=== PATIENT | male | born 1960 | race Caucasian/White ===

== ENCOUNTER 2020-06-05 14:58 | Emergency (ER) | payer OTHER ==
--- NOTE | 2020-06-05 15:15 | EDM.PDOC ---
ED HPI GENERAL MEDICAL PROBLEM - General Chief Complaint: Fever Stated Complaint: FEVER Time Seen by Provider: 06/05/20 15:12 Source of Information: Reports: Patient History Limitations: Reports: No Limitations - History of Present Illness INITIAL COMMENTS - FREE TEXT/NARRATIVE: Jarad, 59-year-old male, presented today for his previously scheduled chemotherapy. His port was accessed and flushed, giving his IV steroid prechemotherapy regimen. At that time he stated he felt chilled and his temperature was rechecked and found to be febrile greater than 101. Dr. Toscano at [facility] was contacted and advised to have laboratory analysis including cultures blood cultures and culture of his port delaying his chemotherapy for the day. He denies any exposures or risks states that he has had some difficulty "getting warm", ever since chemotherapy started. This is known side effect of the treatment process. Denies any risks or exposures to COVID-19 or other factors. Onset: Today - Related Data Allergies Allergy/AdvReac Type Severity Reaction Status Date / Time No Known Allergies Allergy Verified 06/05/20 15:15 Home Meds: Home Meds Metoprolol Tartrate [Lopressor] 100 mg PO Q12HR 11/22/13 [History] Capecitabine [Xeloda] 2,000 mg PO ASDIRECTED 04/21/20 [History] Mirtazapine [Remeron] 7.5 mg PO BEDTIME PRN 04/21/20 [History] Ondansetron [Zofran Odt] 8 mg PO Q8H PRN 04/21/20 [History] Prochlorperazine Maleate [Compazine] 10 mg PO Q6H PRN 04/21/20 [History] atorvaSTATin [Lipitor] 20 mg PO BEDTIME 04/21/20 [History] dexAMETHasone [Dexamethasone] 8 mg PO ASDIRECTED 04/21/20 [History] metFORMIN HCl [Metformin HCl ER] 500 mg PO DAILY 04/21/20 [History] Docusate Sodium [Colace] 100 mg PO BID PRN 05/15/20 [History] Oxaliplatin 275.6 mg IV ASDIRECTED 06/05/20 [History] Palonosetron [Aloxi] 0.25 mg IV ASDIRECTED 06/05/20 [History] dexAMETHasone in 0.9 % sod chl [Dexamethasone 20 mg/50 ml-Ns] 12 mg IV ASDIRECTED 06/05/20 [History] diphenhydrAMINE [Benadryl] 50 mg IV ASDIRECTED 06/05/20 [History] Past Medical History HEENT History: Reports: Impaired Vision Cardiovascular History: Reports: High Cholesterol, Hypertension Other Cardiovascular History: sinus tachycardia. 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 ED EXAM, GENERAL - Physical Exam Exam: See Below Free Text/Narrative:: Alert, oriented with no evidence of cyanosis nor pallor. HEENT is negative discharge deformity with mild tacky appearing oral membranes. Neck is soft supple with no lymphadenopathy. Thorax is clear throughout with no wheezes nor crackles. Cardiac is regular I do not appreciate any murmur. No flank pain no abdominal pain no chest wall discomfort is noted. There is no edema to the lower extremities. Course - Vital Signs Last Recorded V/S: Last Vital Signs Temp 100.4 F 06/05/20 15:12 Pulse 101 H 06/05/20 15:12 Resp 18 06/05/20 15:12 BP 144/83 H 06/05/20 15:12 Pulse Ox 98 06/05/20 15:12 - Orders/Labs/Meds Orders: Active Orders 24 hr Category Date Time Status CULTURE BLOOD [BC] Stat Lab 06/05/20 15:35 Received CULTURE BLOOD [BC] Stat Lab 06/05/20 15:40 Received CULTURE CATHETER TIP [RM] Stat Lab 06/05/20 15:13 Ordered Heparin Sodium [Heparin Lock Flush 100 Units/ML] Med 06/05/20 17:24 Active 500 units FLUSH ASDIRECTED PRN Blood Culture x2 Reflex Set [OM.PC] Stat Oth 06/05/20 15:12 Ordered Medication Orders Heparin Sodium (Porcine) (Heparin Lock Flush 100 Units/Ml) 500 units FLUSH ASDIRECTED PRN PRN Reason: Heparin lock Last Admin: 06/05/20 17:26 Dose: 500 units Documented by: MIKE Labs: Laboratory Tests 06/05/20 06/05/20 06/05/20 Range/Units 03:00 15:35 15:35 WBC 12.20 H (5.00-10.00) 10^3/uL RBC 4.26 L (4.50-6.00) 10^6/uL Hgb 11.6 L (13.0-17.0) g/dL Hct 36.2 L (40.0-52.0) % MCV 85.0 (82.0-92.0) fL MCH 27.2 (27.0-31.0) pg MCHC 32.0 (32.0-36.0) g/dL RDW 24.8 H (11.5-14.5) % Plt Count 308 (150-400) 10^3/uL MPV 9.5 (7.4-10.4) fL Immature Gran % (Auto) 0.2 (0.0-5.0) % Neut % (Auto) 84.3 H (50.0-70.0) % Lymph % (Auto) 5.2 L (20.0-40.0) % [place] % (Auto) 9.3 H (2.0-8.0) % Eos % (Auto) 0.6 L (1.0-3.0) % Baso % (Auto) 0.4 (0.0-1.0) % Neut # (Auto) 10.30 H (2.50-7.00) 10^3/uL Lymph # (Auto) 0.63 L (1.00-4.00) 10^3/uL [place] # (Auto) 1.13 H (0.10-0.80) 10^3/uL Eos # (Auto) 0.07 L (0.10-0.30) 10^3/uL Baso # (Auto) 0.05 (0.00-0.10) 10^3/uL Immature Gran # (Auto) 0.02 (0.00-0.50) 10^3/uL Sodium 136 (136-145) mmol/L Potassium 4.0 (3.5-5.1) mmol/L Chloride 100 (98-107) mmol/L Carbon Dioxide 27.3 (21.0-32.0) mmol/L Anion Gap 12.7 (5-15) mmol/L BUN 9 (7-18) mg/dL Creatinine 0.67 (0.51-1.17) mg/dL Est Cr Clr Drug Dosing 123.31 mL/min Estimated GFR (MDRD) > 60 mL/min Glucose 101 (70-140) mg/dL Calcium 9.0 (8.7-10.3) mg/dL Total Bilirubin 0.6 (0.2-1.0) mg/dL AST 30 (15-37) U/L ALT 31 (14-63) U/L Alkaline Phosphatase 98 (46-116) U/L Total Protein 7.2 (6.4-8.2) g/dL Albumin 3.09 L (3.40-5.00) g/dL Specimen Type Urincc Urine Color Yellow (YELLOW) Urine Appearance Clear (CLEAR) Urine pH 6.5 (5.0-9.0) Ur Specific [place] 1.020 (1.005-1.030) Urine Protein Negative (NEGATIVE) mg/dL Urine Glucose (UA) Negative (NEGATIVE) mg/dL Urine Ketones Negative (NEGATIVE) mg/dL Urine Occult Blood Negative (NEGATIVE) Urine Nitrite Negative (NEGATIVE) Urine Bilirubin Negative (NEGATIVE) Urine Urobilinogen 0.2 (0.2-1.0) E.U./dL Ur Leukocyte Esterase Negative (NEGATIVE) Meds: Medications Generic Name Dose Route Start Last Admin Trade Name Freq PRN Reason Stop Dose Admin Heparin Sodium (Porcine) 500 units 06/05/20 17:24 06/05/20 17:26 Heparin Lock Flush 100 Units/Ml FLUSH 500 units ASDIRECTED PRN Administration Heparin lock Discontinued Medications Generic Name Dose Route Start Last Admin Trade Name Freq PRN Reason Stop Dose Admin Heparin Sodium (Porcine) Confirm 06/05/20 17:15 Heparin Lock Flush 100 Units/Ml Administered 06/05/20 17:16 Dose 500 units .ROUTE .STK-MED ONE - Re-Assessments/Exams Free Text/Narrative Re-Assessment/Exam: 06/05/20 17:42 Copies of all laboratory analysis obtained today are faxed to the [facility] for review by Dr. Pierre Departure - Departure Time of Disposition: 17:32 Disposition: Home, Self-Care 01 Condition: Good Clinical Impression: Fever and chills - Discharge Information *PRESCRIPTION DRUG MONITORING PROGRAM REVIEWED*: Not Applicable *COPY OF PRESCRIPTION DRUG MONITORING REPORT IN PATIENT EMILY: Not Applicable Instructions: Fever, Adult, [id number] Referrals: Marina Baldwin, [employer] REPRESENTATIVE [Primary Care Provider] - Forms: ED Department Discharge Additional Instructions: Laboratory analysis shows a slight elevation in your white count, which may be related to your treatment/steroid use. There is no major shift in your electrolytes. There is no evidence of urine infection. Cultures have been obtained of your blood as well as the port access which are pending at this time. Copies of all results have been sent to Dr. Rodriguez for his review. Contact your clinic or return to the emergency department if concerns develop, otherwise continue your medications as previously directed and follow-up as scheduled. Sepsis Event Note (ED) - Focused Exam Vital Signs: Vital Signs Temp Pulse Resp BP Pulse Ox 06/05/20 15:12 100.4 F 101 H 18 144/83 H 98 - Problem List & Annotations (1) Fever and chills SNOMED Code(s): 492885123 Code(s): R50.9 - FEVER, UNSPECIFIED Status: Acute Priority: High Current Visit: Yes - Problem List Review Problem List Initiated/Reviewed/Updated: Yes - My Orders Last 24 Hours: My Active Orders 06/05/20 15:12 Blood Culture x2 Reflex Set [OM.PC] Stat 06/05/20 15:13 CULTURE CATHETER TIP [RM] Stat 06/05/20 15:35 CULTURE BLOOD [BC] Stat 06/05/20 15:40 CULTURE BLOOD [BC] Stat 06/05/20 17:24 Heparin Sodium [Heparin Lock Flush 100 Units/ML] 500 units FLUSH ASDIRECTED PRN - Assessment/Plan Last 24 Hours: My Active Orders 06/05/20 15:12 Blood Culture x2 Reflex Set [OM.PC] Stat 06/05/20 15:13 CULTURE CATHETER TIP [RM] Stat 06/05/20 15:35 CULTURE BLOOD [BC] Stat 06/05/20 15:40 CULTURE BLOOD [BC] Stat 06/05/20 17:24 Heparin Sodium [Heparin Lock Flush 100 Units/ML] 500 units FLUSH ASDIRECTED PRN Plan: Laboratory analysis shows a slight elevation in your white count, which may be related to your treatment/steroid use. There is no major shift in your electrolytes. There is no evidence of urine infection. Cultures have been obtained of your blood as well as the port access which are pending at this time. Copies of all results have been sent to Dr. Rodriguez for his review. Contact your clinic or return to the emergency department if concerns develop, otherwise continue your medications as previously directed and follow-up as scheduled.
--- NOTE | 2020-06-05 15:36 | CR ---
[id number] RAD/RAD Chest PA And Lateral EXAM: RAD Chest PA And Lateral CLINICAL DATA: FEVER COMPARISON: NO PREVIOUS SIMILAR EXAM IS AVAILABLE. FINDINGS: The lungs are clear A chest port is seen The cardiomediastinal contour is upper normal IMPRESSION: NO PNEUMONIA Noah Clement MD 06/05/20 [id number] Thank you for allowing us to participate in the care of your patient.
[2020-06-05 16:20] LABS: ANION GAP 12.7 mmol/L (5-15); CHLORIDE,CL 100 mmol/L (98-107); SODIUM,NA 136 mmol/L (136-145)
== END 2020-06-05 17:50 | disposition home or self-care (01) ==
LOC: KA.ED 14:58
DX: R50.9 Fever, unspecified (principal); E78.00 Pure hypercholesterolemia, unspecified; I10 Essential (primary) hypertension
CPT/HCPCS: 36415; 71046; 80053; 81003; 85025; 87040; 87070; 87205; 99283; J1642; 99284

== ENCOUNTER 2020-06-08 10:11 | Emergency (ER) | payer OTHER ==
--- NOTE | 2020-06-08 10:20 | EDM.PDOC ---
ED HPI GENERAL MEDICAL PROBLEM - General Chief Complaint: General Stated Complaint: CHILLS...NOT FEELING WELL Time Seen by Provider: 06/08/20 10:15 Source of Information: Reports: Patient History Limitations: Reports: No Limitations - History of Present Illness INITIAL COMMENTS - FREE TEXT/NARRATIVE: Jarad, 59-year-old male, presents today for reevaluation of his ongoing rigors and low-grade temp. He was seen last for his scheduled chemotherapy which was aborted that day due to him spiking a fever after his arrival. [facility] was consulted and laboratory analysis obtained and forwarded to them with discharge home for follow-up as directed. He was cleared for chemotherapy for the next day but unfortunately not available Due to staffing reasons. He stated he stepped outside on Tuesday and is the cold air struck his body he almost immediately developed chills again. He states this is a side effect of his chemo that he is well aware of but has become more severe on this event. Routine exposures, with no known Covid 19, but is frequent to medical facilities secondary of the treatment process. Onset: Gradual Duration: Day(s): Location: Reports: Generalized Quality: Reports: Other (chills) Severity: Moderate - Related Data Allergies Allergy/AdvReac Type Severity Reaction Status Date / Time No Known Allergies Allergy Verified 06/08/20 10:24 Home Meds: Home Meds Metoprolol Tartrate [Lopressor] 100 mg PO Q12HR 11/22/13 [History] Capecitabine [Xeloda] 2,000 mg PO ASDIRECTED 04/21/20 [History] Mirtazapine [Remeron] 7.5 mg PO BEDTIME PRN 04/21/20 [History] Ondansetron [Zofran Odt] 8 mg PO Q8H PRN 04/21/20 [History] Prochlorperazine Maleate [Compazine] 10 mg PO Q6H PRN 04/21/20 [History] atorvaSTATin [Lipitor] 20 mg PO BEDTIME 04/21/20 [History] dexAMETHasone [Dexamethasone] 8 mg PO ASDIRECTED 04/21/20 [History] metFORMIN HCl [Metformin HCl ER] 500 mg PO DAILY 04/21/20 [History] Docusate Sodium [Colace] 100 mg PO BID PRN 05/15/20 [History] Oxaliplatin 275.6 mg IV ASDIRECTED 06/05/20 [History] Palonosetron [Aloxi] 0.25 mg IV ASDIRECTED 06/05/20 [History] dexAMETHasone in 0.9 % sod chl [Dexamethasone 20 mg/50 ml-Ns] 12 mg IV ASDIRECTED 06/05/20 [History] diphenhydrAMINE [Benadryl] 50 mg IV ASDIRECTED 06/05/20 [History] Amoxicillin/Potassium Clav [Amox Tr-K Clv 875-125 mg Tab] 1 each PO BID 7 Days #14 tablet 06/08/20 [Rx] Past Medical History HEENT History: Reports: Impaired Vision Cardiovascular History: Reports: High Cholesterol, Hypertension Other Cardiovascular History: sinus tachycardia. PVC'S Respiratory History: Reports: Sleep Apnea Other Respiratory History: OBSTRUCTIVE SLEEP APNEA. 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 - Infectious Disease History Infectious Disease History: Reports: Chicken Pox, Mononucleosis, Mumps - Past Surgical History HEENT Surgical History: Reports: Tonsillectomy Cardiovascular Surgical History: Reports: None Respiratory Surgical History: Reports: None GI Surgical History: Reports: Colonoscopy Neurological Surgical History: Reports: Other (See Below) Other Neurological Surgeries/Procedures: RUPTURED DISC SURGERY Social & Family History - Family History Family Medical History: No Pertinent Family History - Caffeine Use Caffeine Use: Reports: Coffee, Soda ED ROS GENERAL - Review of Systems Review Of Systems: Comprehensive ROS is negative, except as noted in HPI. ED EXAM, GENERAL - Physical Exam Exam: See Below Free Text/Narrative:: Alert, oriented, with occasional chills. HEENT is negative discharge or deformity. Neck soft supple no rigidity. Thorax is clear with no wheezes or crackles. Cardiac S1-S2 I do not appreciate murmur. No flank pain no abdominal tenderness. There is no edema to the extremities. Occasional rigors occur but are much more minimal now than what he was experiencing this morning and prior to the arrival. We discussed with her do comparison studies on his electrolytes and reinstitute culture draws today and include a COVID-19 swab. Course - Vital Signs Last Recorded V/S: Last Vital Signs Temp 100.5 F 06/08/20 10:18 Pulse 108 H 06/08/20 10:18 Resp 16 06/08/20 10:18 BP 109/70 06/08/20 10:18 Pulse Ox 96 06/08/20 10:18 - Orders/Labs/Meds Orders: Active Orders 24 hr Category Date Time Status CULTURE BLOOD [BC] Stat Lab 06/08/20 10:22 Ordered CULTURE BLOOD [BC] Stat Lab 06/08/20 10:30 Received CULTURE BLOOD [BC] Stat Lab 06/08/20 10:30 Received Blood Culture x2 Reflex Set [OM.PC] Stat Oth 06/08/20 10:21 Ordered Labs: Laboratory Tests 06/08/20 06/08/20 06/08/20 Range/Units 10:30 10:30 10:46 WBC 17.33 H (5.00-10.00) 10^3/uL RBC 4.30 L (4.50-6.00) 10^6/uL Hgb 11.8 L (13.0-17.0) g/dL Hct 36.1 L (40.0-52.0) % MCV 84.0 (82.0-92.0) fL MCH 27.4 (27.0-31.0) pg MCHC 32.7 (32.0-36.0) g/dL RDW 25.0 H (11.5-14.5) % Plt Count 279 (150-400) 10^3/uL MPV 9.7 (7.4-10.4) fL Immature Gran % (Auto) 0.3 (0.0-5.0) % Neut % (Auto) 80.4 H (50.0-70.0) % Lymph % (Auto) 4.7 L (20.0-40.0) % [place] % (Auto) 14.3 H (2.0-8.0) % Eos % (Auto) 0.0 L (1.0-3.0) % Baso % (Auto) 0.3 (0.0-1.0) % Neut # (Auto) 13.93 H (2.50-7.00) 10^3/uL Lymph # (Auto) 0.82 L (1.00-4.00) 10^3/uL [place] # (Auto) 2.47 H (0.10-0.80) 10^3/uL Eos # (Auto) 0.00 L (0.10-0.30) 10^3/uL Baso # (Auto) 0.05 (0.00-0.10) 10^3/uL Immature Gran # (Auto) 0.06 (0.00-0.50) 10^3/uL Target Cells Rare Sodium 136 (136-145) mmol/L Potassium 3.2 L (3.5-5.1) mmol/L Chloride 97 L (98-107) mmol/L Carbon Dioxide 25.4 (21.0-32.0) mmol/L Anion Gap 16.8 H (5-15) mmol/L BUN 12 (7-18) mg/dL Creatinine 0.75 (0.51-1.17) mg/dL Est Cr Clr Drug Dosing 110.16 mL/min Estimated GFR (MDRD) > 60 mL/min Glucose 122 (70-140) mg/dL Calcium 8.9 (8.7-10.3) mg/dL Total Bilirubin 0.7 (0.2-1.0) mg/dL AST 26 (15-37) U/L ALT 26 (14-63) U/L Alkaline Phosphatase 93 (46-116) U/L Total Protein 7.0 (6.4-8.2) g/dL Albumin 2.94 L (3.40-5.00) g/dL SARS CoV-2 RNA Rapid TOM Negative (NEGATIVE) Meds: Medications Discontinued Medications Generic Name Dose Route Start Last Admin Trade Name Maikq PRN Reason Stop Dose Admin Amoxicillin/Clavulanate Potassium 2 tab 06/08/20 12:02 Augmentin 875 Mg/125 Mg PO 06/08/20 12:03 ONETIME ONE - Re-Assessments/Exams Free Text/Narrative Re-Assessment/Exam: 06/08/20 12:13 Discussed options for care including antibiotic broad-spectrum, contacting [place], or waiting to see what laboratory analysis return when rechecked on Tuesday. They will agrees antibiotic therapy at this time as you would prefer avoiding hospitalization or travel to [place] until something is proven is the nose cultures will not finalize for the next 24 to 48 hours on cultures drawn and the ones from today would be next Tuesday to in Timespan d epending on response. Departure - Departure Time of Disposition: 12:10 Disposition: Home, Self-Care 01 Condition: Fair Clinical Impression: Immunocompromised state due to drug therapy, Fever and chills, COVID-19 ruled out by laboratory testing, Hypokalemia, Leukocytosis, unspecified - Discharge Information *PRESCRIPTION DRUG MONITORING PROGRAM REVIEWED*: Not Applicable *COPY OF PRESCRIPTION DRUG MONITORING REPORT IN PATIENT EMILY: Not Applicable Prescriptions: Amoxicillin/Potassium Clav [Amox Tr-K Clv 875-125 mg Tab] 1 each PO BID 7 Days #14 tablet Instructions: Hypokalemia, Fever, Adult, [id number] Referrals: Marina Baldwin NP [Primary Care Provider] - Ang Meyer MD [Ordering Only Provider] - Forms: ED Department Discharge Additional Instructions: With comparison of the change in your white count since , we will start you on broad-spectrum antibiotic of Augmentin. You will take 1 twice daily for the next week. You are negative for COVID-19. Your potassium is come down slightly, you may improve that by eating bananas or other high potassium foods potatoes, potato pealings and such. Continue all your other medications as directed. You may consider eating yogurt or take probiotic capsule to reduce the concern of diarrhea from the antibiotic. Follow-up with your clinic as scheduled for laboratory analysis. As a lot of your symptoms are secondary warnings of your chemotherapy, try avoid any irritants or activity that may cause that to flareup. We have provided you copies of the lab and will send copies to the [facility] for them to have available in your chart as well as this record. Please call us or follow-up as needed. Cultures will result some time likely the second or 3 June. Consideration for reevaluation if your chills would be worsening or other issues develop. Sepsis Event Note (ED) - Focused Exam Vital Signs: Vital Signs Temp Pulse Resp BP Pulse Ox 06/08/20 10:18 100.5 F 108 H 16 109/70 96 - Problem List & Annotations (1) Fever and chills SNOMED Code(s): 425434020 Code(s): R50.9 - FEVER, UNSPECIFIED Status: Acute Priority: High Current Visit: No (2) Immunocompromised state due to drug therapy SNOMED Code(s): 776910524 Code(s): D84.821 - IMMUNODEFICIENCY DUE TO DRUGS; Z79.899 - OTHER ULTRASONIC TESTER (CURRENT) DRUG THERAPY Status: Chronic Priority: High Current Visit: Yes (3) COVID-19 ruled out by laboratory testing SNOMED Code(s): 479996018840815465, 664242902439354467 Code(s): Z20.822 - CONTACT WITH AND (SUSPECTED) EXPOSURE TO COVID-19 Status: Acute Priority: High Current Visit: Yes (4) Leukocytosis, unspecified SNOMED Code(s): 158356306, 747085771 Code(s): D72.829 - ELEVATED WHITE BLOOD CELL COUNT, UNSPECIFIED Status: Acute Current Visit: Yes Qualifiers: Leukocytosis type: unspecified Qualified Code(s): D72.829 - Elevated white blood cell count, unspecified (5) Hypokalemia SNOMED Code(s): 48441520 Code(s): E87.6 - HYPOKALEMIA Status: Acute Current Visit: Yes - Problem List Review Problem List Initiated/Reviewed/Updated: Yes - My Orders Last 24 Hours: My Active Orders 06/08/20 10:21 Blood Culture x2 Reflex Set [OM.PC] Stat 06/08/20 10:22 CULTURE BLOOD [BC] Stat 06/08/20 10:30 CULTURE BLOOD [BC] Stat CULTURE BLOOD [BC] Stat - Assessment/Plan Last 24 Hours: My Active Orders 06/08/20 10:21 Blood Culture x2 Reflex Set [OM.PC] Stat 06/08/20 10:22 CULTURE BLOOD [BC] Stat 06/08/20 10:30 CULTURE BLOOD [BC] Stat CULTURE BLOOD [BC] Stat Plan: With comparison of the change in your white count since , we will start you on broad-spectrum antibiotic of Augmentin. You will take 1 twice daily for the next week. You are negative for COVID-19. Your potassium is come down slightly, you may improve that by eating bananas or other high potassium foods potatoes, potato pealings and such. Continue all your other medications as directed. You may consider eating yogurt or take probiotic capsule to reduce the concern of diarrhea from the antibiotic. Follow-up with your clinic as scheduled for laboratory analysis. As a lot of your symptoms are secondary warnings of your chemotherapy, try avoid any irritants or activity that may cause that to flareup. We have provided you copies of the lab and will send copies to the [facility] for them to have available in your chart as well as this record. Please call us or follow-up as needed. Cultures will result some time likely the second or 11 June. Consideration for reevaluation if your chills would be worsening or other issues develop.
[2020-06-08 11:40] LABS: ANION GAP 16.8 mmol/L (5-15); CHLORIDE,CL 97 mmol/L (98-107); SODIUM,NA 136 mmol/L (136-145)
[2020-06-08] MEDS ORDERED: Amoxicillin/Clavulanate K 875-125 MG Tab PO ONE (12:02)
== END 2020-06-08 12:25 | disposition home or self-care (01) ==
LOC: KA.ED 10:11
DX: R50.9 Fever, unspecified (principal); E87.6 Hypokalemia; D72.829 Elevated white blood cell count, unspecified; T45.1X5A Adverse effect of antineoplastic and immunosuppressive drugs, initial encounter; I10 Essential (primary) hypertension; E78.00 Pure hypercholesterolemia, unspecified; Z20.822 Contact with and (suspected) exposure to COVID-19; Z79.899 Other long term (current) drug therapy
CPT/HCPCS: 36415; 80053; 85025; 87040; 99284; A9270-GY; U0002

== ENCOUNTER 2020-06-21 00:48 | Emergency (ER) | payer OTHER ==
[2020-06-21] MEDS ORDERED: Sodium Chloride 0.9% 1,000 ML IV ONE ×3 (01:04→02:37)
--- NOTE | 2020-06-21 01:12 | EDM.PDOC ---
ED HPI GENERAL MEDICAL PROBLEM - General Chief Complaint: General Stated Complaint: fever, weakness, dehydration Time Seen by Provider: 06/21/20 01:03 Source of Information: Reports: Patient History Limitations: Reports: No Limitations - History of Present Illness INITIAL COMMENTS - FREE TEXT/NARRATIVE: Patient presents via ambulance with fever, weakness and tachycardia. He says he thinks he is just really dehydrated. He is getting treatment for colon cancer and has had 3 chemo treatments so far. So far he hasn't had drop in white cell counts that he knows of. He thinks he is dehydrated, mostly due to lack of appetite and thirst. He denies diarrhea or vomiting. He denies any pain or cough. He was here in ER 12 days ago with similar symptoms; had UA and CXR to look for any source of infection and was started on a 7-day course of amoxicillin empirically. 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 He doesn't know if the fever ever completely resolved but he feels worse now. His says he almost fainted twice this evening when walking to the bathroom. Lower Back Pain Score (Numeric/FACES): 4 - Related Data Allergies Allergy/AdvReac Type Severity Reaction Status Date / Time oxaliplatin Allergy Other Verified 06/21/20 01:55 Home Meds: Home Meds Metoprolol Tartrate [Lopressor] 100 mg PO Q12HR 11/22/13 [History] Capecitabine [Xeloda] 2,000 mg PO ASDIRECTED 04/21/20 [History] Mirtazapine [Remeron] 7.5 mg PO BEDTIME PRN 04/21/20 [History] Ondansetron [Zofran Odt] 8 mg PO Q8H PRN 04/21/20 [History] Prochlorperazine Maleate [Compazine] 10 mg PO Q6H PRN 04/21/20 [History] atorvaSTATin [Lipitor] 20 mg PO BEDTIME 04/21/20 [History] dexAMETHasone [Dexamethasone] 8 mg PO ASDIRECTED 04/21/20 [History] metFORMIN HCl [Metformin HCl ER] 500 mg PO DAILY 04/21/20 [History] Docusate Sodium [Colace] 100 mg PO BID PRN 05/15/20 [History] Oxaliplatin 275.6 mg IV ASDIRECTED 06/05/20 [History] Palonosetron [Aloxi] 0.25 mg IV ASDIRECTED 06/05/20 [History] dexAMETHasone in 0.9 % sod chl [Dexamethasone 20 mg/50 ml-Ns] 12 mg IV ASDIRECTED 06/05/20 [History] diphenhydrAMINE [Benadryl] 50 mg IV ASDIRECTED 06/05/20 [History] Amoxicillin/Potassium Clav [Amox Tr-K Clv 875-125 mg Tab] 1 each PO BID 7 Days #14 tablet 06/08/20 [Rx] Past Medical History HEENT History: Reports: Impaired Vision Cardiovascular History: Reports: High Cholesterol, Hypertension Other Cardiovascular History: sinus tachycardia. PVC'S Respiratory History: Reports: Sleep Apnea Other Respiratory History: OBSTRUCTIVE SLEEP APNEA. 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 - Infectious Disease History Infectious Disease History: Reports: Chicken Pox, Mononucleosis, Mumps - Past Surgical History HEENT Surgical History: Reports: Tonsillectomy Cardiovascular Surgical History: Reports: None Respiratory Surgical History: Reports: None GI Surgical History: Reports: Colonoscopy Other GI Surgeries/Procedures: colon tumor Neurological Surgical History: Reports: Other (See Below) Other Neurological Surgeries/Procedures: RUPTURED DISC SURGERY Social & Family History - Family History Family Medical History: No Pertinent Family History - Caffeine Use Caffeine Use: Reports: Coffee, Soda ED ROS GENERAL - Review of Systems Review Of Systems: See Below Constitutional: Reports: Fever, Chills, Weakness, Diaphoresis, Decreased Appetite HEENT: Denies: Ear Pain, Throat Pain, Vision Change Respiratory: Denies: Shortness of Breath, Cough Cardiovascular: Denies: Chest Pain, Lightheadedness, Syncope GI/Abdominal: Denies: Abdominal Pain, Diarrhea, Vomiting : Denies: Dysuria, Flank Pain Musculoskeletal: Denies: Neck Pain, Shoulder Pain, Arm Pain, Back Pain, Hand Pain Skin: Denies: Cyanosis, Jaundice, Mottled, Pallor, Diaphoresis Neurological: Denies: Confusion, Dizziness, Headache, Seizure, Syncope, Trouble Speaking, Difficulty Walking Psychiatric: Denies: Agitation, Anxiety, Confusion ED EXAM, GENERAL - Physical Exam Exam: See Below Exam Limited By: No Limitations General Appearance: Alert, WD/WN, No Apparent Distress Eye Exam: Bilateral Eye: EOMI, Normal Inspection, PERRL Ears: Normal External Exam, Hearing Grossly Normal Nose: Normal Inspection, No Blood Throat/Mouth: Normal Inspection, Normal Lips, Normal Voice, No Airway Compromise Head: Atraumatic, Normocephalic Neck: Normal Inspection, Full Range of Motion Respiratory/Chest: No Respiratory Distress, Lungs Clear, Normal Breath Sounds, No Accessory Muscle Use Cardiovascular: No Edema, No Gallop, No JVD, No Murmur, Tachycardia GI/Abdominal: Soft, Non-Tender, No Distention, No Abnormal Bruit, Abnormal Bowel Sounds (decreased) Back Exam: Normal Inspection, Full Range of Motion. No: CVA Tenderness (L), CVA Tenderness (R) Extremities: Normal Inspection, Normal Range of Motion Neurological: Alert, Oriented, Normal Cognition, No Motor/Sensory Deficits Psychiatric: Normal Affect, Normal Mood Skin Exam: Warm, Dry, Intact, Normal Color, No Rash Course - Vital Signs Last Recorded V/S: Last Vital Signs Temp 103.2 F H 06/21/20 00:57 Pulse 121 H 06/21/20 01:15 Resp 32 H 06/21/20 01:15 BP 85/61 L 06/21/20 01:15 Pulse Ox 95 06/21/20 01:15 - Orders/Labs/Meds Orders: Active Orders 24 hr Category Date Time Status Chest 1V Frontal [CR] Stat Exams 06/21/20 02:16 Ordered CULTURE BLOOD [BC] Stat Lab 06/21/20 01:05 Ordered CULTURE BLOOD [BC] Stat Lab 06/21/20 01:05 Ordered UA W/MICROSCOPIC [URIN] Stat Lab 06/21/20 01:28 Ordered Sodium Chloride 0.9% @ 999 MLS/HR (1000ml) Med 06/21/20 02:37 Ordered Sodium Chloride 0.9% [Normal Saline] 1,000 ml IV .BOLUS Vancomycin 1 gm Med 06/21/20 02:32 Ordered Sodium Chloride 0.9% [Normal Saline] 250 ml IV ONETIME Blood Culture x2 Reflex Set [OM.PC] Stat Oth 06/21/20 01:04 Ordered Medication Orders Vancomycin HCl 1 gm/ Sodium (Chloride) 250 mls @ 167 mls/hr IV ONETIME ONE Stop: 06/21/20 04:01 Sodium Chloride (Normal Saline) 1,000 mls @ 999 mls/hr IV .BOLUS ONE Stop: 06/21/20 03:37 Last Admin: 06/21/20 02:52 Dose: 999 mls/hr Documented by: ESTRELLA Labs: Laboratory Tests 06/21/20 06/21/20 06/21/20 Range/Units 01:00 01:00 01:00 WBC 29.74 H D (5.00-10.00) 10^3/uL RBC 4.10 L (4.50-6.00) 10^6/uL Hgb 11.3 L (13.0-17.0) g/dL Hct 33.5 L (40.0-52.0) % MCV 81.7 L (82.0-92.0) fL MCH 27.6 (27.0-31.0) pg MCHC 33.7 (32.0-36.0) g/dL RDW 23.2 H (11.5-14.5) % Plt Count 24 L* D (150-400) 10^3/uL Add Manual Diff Yes Neutrophils % (Manual) 96 H (50-70) % Band Neutrophils % 2 L (4-12) % Lymphocytes % (Manual) 1 L (20-40) % Monocytes % (Manual) 1 L (2-8) % Absolute Neutrophils 29.1452 Lymphocytes # (Manual) 0.2974 Monocytes # (Manual) 0.2974 Sodium 136 (136-145) mmol/L Potassium 3.4 L (3.5-5.1) mmol/L Chloride 97 L (98-107) mmol/L Carbon Dioxide 20.6 L (21.0-32.0) mmol/L Anion Gap 21.8 H (5-15) mmol/L BUN 18 (7-18) mg/dL Creatinine 1.22 H (0.51-1.17) mg/dL Est Cr Clr Drug Dosing TNP Estimated GFR (MDRD) > 60 mL/min Glucose 123 (70-140) mg/dL Lactic Acid 7.3 H (0.4-2.0) mmol/L Calcium 9.1 (8.7-10.3) mg/dL Total Bilirubin 0.8 (0.2-1.0) mg/dL AST 61 H (15-37) U/L ALT 58 (14-63) U/L Alkaline Phosphatase 148 H (46-116) U/L C-Reactive Protein > 11.0 H (0.0-0.9) mg/dL Total Protein 7.0 (6.4-8.2) g/dL Albumin 2.44 L (3.40-5.00) g/dL SARS CoV-2 RNA Rapid TOM (NEGATIVE) 06/21/20 Range/Units 02:30 WBC (5.00-10.00) 10^3/uL RBC (4.50-6.00) 10^6/uL Hgb (13.0-17.0) g/dL Hct (40.0-52.0) % MCV (82.0-92.0) fL MCH (27.0-31.0) pg MCHC (32.0-36.0) g/dL RDW (11.5-14.5) % Plt Count (150-400) 10^3/uL Add Manual Diff Neutrophils % (Manual) (50-70) % Band Neutrophils % (4-12) % Lymphocytes % (Manual) (20-40) % Monocytes % (Manual) (2-8) % Absolute Neutrophils Lymphocytes # (Manual) Monocytes # (Manual) Sodium (136-145) mmol/L Potassium (3.5-5.1) mmol/L Chloride (98-107) mmol/L Carbon Dioxide (21.0-32.0) mmol/L Anion Gap (5-15) mmol/L BUN (7-18) mg/dL Creatinine (0.51-1.17) mg/dL Est Cr Clr Drug Dosing Estimated GFR (MDRD) mL/min Glucose (70-140) mg/dL Lactic Acid (0.4-2.0) mmol/L Calcium (8.7-10.3) mg/dL Total Bilirubin (0.2-1.0) mg/dL AST (15-37) U/L ALT (14-63) U/L Alkaline Phosphatase (46-116) U/L C-Reactive Protein (0.0-0.9) mg/dL Total Protein (6.4-8.2) g/dL Albumin (3.40-5.00) g/dL SARS CoV-2 RNA Rapid TOM Negative (NEGATIVE) Meds: Medications Generic Name Dose Route Start Last Admin Trade Name Freq PRN Reason Stop Dose Admin Vancomycin HCl 1 gm/ Sodium 250 mls @ 167 mls/hr 06/21/20 02:32 Chloride IV 06/21/20 04:01 ONETIME ONE Sodium Chloride 1,000 mls @ 999 mls/hr 06/21/20 02:37 06/21/20 02:52 Normal Saline IV 06/21/20 03:37 999 mls/hr .BOLUS ONE Administration Discontinued Medications Generic Name Dose Route Start Last Admin Trade Name Freq PRN Reason Stop Dose Admin Cefepime HCl 2 gm 06/21/20 02:16 06/21/20 02:28 Maxipime IVPUSH 06/21/20 02:17 2 gm ONETIME ONE Administration Sodium Chloride 1,000 mls @ 999 mls/hr 06/21/20 01:04 06/21/20 01:19 Normal Saline IV 06/21/20 02:04 999 mls/hr .BOLUS ONE Administration Sodium Chloride 1,000 mls @ 999 mls/hr 06/21/20 01:27 06/21/20 01:43 Normal Saline IV 06/21/20 02:27 999 mls/hr .BOLUS ONE Administration Sterile Water Confirm 06/21/20 02:59 Sterile Water For Injection Administered 06/21/20 03:00 Dose 100 mls @ as directed .ROUTE .STK-MED ONE - Re-Assessments/Exams Free Text/Narrative Re-Assessment/Exam: 06/21/20 02:00 This looks like sepsis with tachycardia, fever and low BP. WBC is 29 and lactic acid is 7.3. Blood cultures are drawn and two liters of NS are running through two IVs, were started while waiting on labs. 06/21/20 02:[address] Mohan and also Dr. Gongora (hospitalist) in [place]. Will transfer to [facility]. He wants 1 gram of Vanco given in addition to the Cefepime 2 gms already running. Discussed findings and treatment plan with patient and his who agree. Patient is alert, talking and appears stable. 06/21/20 02:37 BP is starting to improve: 89/55 now versus a low of 80/55. Two liter of fluids and Cefepime are in and will now start a 3rd liter as well as Vanco in the other line. 06/21/20 02:44 CXR looks clear. 06/21/20 03:03 Covid is negative. Patient will be going to 279 at [facility] ICU. Patient is remaining relatively stable and improving hemodynamically. 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 - Discharge Information Referrals: Marina Baldwin [employer] [Primary Care Provider] - Forms: ED Department Discharge Sepsis Event Note (ED) - Focused Exam Vital Signs: Vital Signs Temp Pulse Resp BP Pulse Ox 06/21/20 01:15 121 H 32 H 85/61 L 95 06/21/20 00:57 103.2 F H 129 H 22 H 97/74 96 - My Orders Last 24 Hours: My Active Orders 06/21/20 01:04 Blood Culture x2 Reflex Set [OM.PC] Stat 06/21/20 01:05 CULTURE BLOOD [BC] Stat CULTURE BLOOD [BC] Stat 06/21/20 01:28 UA W/MICROSCOPIC [URIN] Stat 06/21/20 02:16 Chest 1V Frontal [CR] Stat 06/21/20 02:32 Vancomycin 1 gm Sodium Chloride 0.9% [Normal Saline] 250 ml IV ONETIME 06/21/20 02:37 Sodium Chloride 0.9% @ 999 MLS/HR (1000ml) Sodium Chloride 0.9% [Normal Saline] 1,000 ml IV .BOLUS - Assessment/Plan Last 24 Hours: My Active Orders 06/21/20 01:04 Blood Culture x2 Reflex Set [OM.PC] Stat 06/21/20 01:05 CULTURE BLOOD [BC] Stat CULTURE BLOOD [BC] Stat 06/21/20 01:28 UA W/MICROSCOPIC [URIN] Stat 06/21/20 02:16 Chest 1V Frontal [CR] Stat 06/21/20 02:32 Vancomycin 1 gm Sodium Chloride 0.9% [Normal Saline] 250 ml IV ONETIME 02/13/21 02:37 Sodium Chloride 0.9% @ 999 MLS/HR (1000ml) Sodium Chloride 0.9% [Normal Saline] 1,000 ml IV .BOLUS
[2020-06-21 01:47] LABS: ANION GAP 21.8 mmol/L (5-15); CHLORIDE,CL 97 mmol/L (98-107); SODIUM,NA 136 mmol/L (136-145)
[2020-06-21] MEDS ORDERED: Cefepime 2 GM Vial IVPUSH ONE (02:16)
[2020-06-21] MEDS ORDERED: WATER FOR INJECTION STERILE ONE (02:59)
--- NOTE | 2020-06-21 06:47 | CR ---
[id number] RAD/RAD Chest PA or AP 1V EXAM: RAD Chest PA or AP 1V INDICATION: SEPSIS. COMPARISON: June 05, 2020. DISCUSSION: Subtle opacity projecting over the left costophrenic sulcus. Appearance is most consistent with atelectasis. However if there are signs of infection, small developing pneumonia is possible. Lungs are otherwise clear. No pneumothorax. Stable position of right chest wall port catheter. Cardiomediastinal silhouette is normal. IMPRESSION: As above. Sheldon Wheeler MD 06/21/20 0645 Thank you for allowing us to participate in the care of your patient.
== END 2020-06-21 03:35 ==
LOC: KA.ED 00:48
DX: A41.9 Sepsis, unspecified organism (principal); C18.5 Malignant neoplasm of splenic flexure; R65.21 Severe sepsis with septic shock; D72.829 Elevated white blood cell count, unspecified; I10 Essential (primary) hypertension; E78.00 Pure hypercholesterolemia, unspecified; Z88.8 Allergy status to other drugs, medicaments and biological substances; Z79.899 Other long term (current) drug therapy; Z20.822 Contact with and (suspected) exposure to COVID-19
CPT/HCPCS: 36415; 71045; 80053; 83605; 85025; 86140; 87040; 87076; 87077; 87181; 87184; 87186; 96365; 96374; 99284; 99285-25; J0692; J3370; J7030; J7050; U0002

== ENCOUNTER 2023-12-21 13:22 | Emergency (ER) | payer OTHER ==
[2023-12-21] MEDS: Sodium Chloride 0.9% 1,000 ML IV ONE (13:43)
[2023-12-21 13:48] LABS: BASOPHILS ABSOLUTE AUTO 0.04 10^3/uL (0.00-0.10); BASOPHILS PERCENT AUTO 0.2 % (0.0-1.0); EOSINOPHILS PERCENT AUTO 1.2 % (1.0-3.0); HEMATOCRIT 40.3 % (40.0-52.0); HEMOGLOBIN 13.3 g/dL (13.0-17.0); IMMATURE GRAN ABSOLUTE AUTO 0.33 10^3/uL (0.00-0.50); IMMATURE GRAN PERCENT AUTO 1.9 % (0.0-5.0); LYMPHOCYTES ABSOLUTE AUTO 1.29 10^3/uL (1.00-4.00); LYMPHOCYTES PERCENT AUTO 7.4 % (20.0-40.0); MEAN CORPUSCULAR HEMOGLOBIN 32.1 pg (27.0-31.0); MEAN CORPUSCULAR VOLUME 97.3 fL (82.0-92.0); MONOCYTES ABSOLUTE AUTO 1.67 10^3/uL (0.10-0.80); MONOCYTES PERCENT AUTO 9.6 % (2.0-8.0); NEUTROPHILS ABSOLUTE AUTO 13.85 10^3/uL (2.50-7.00); NEUTROPHILS PERCENT AUTO 79.7 % (50.0-70.0); PLATELET COUNT,PLT 266 10^3/uL (150-400); RED BLOOD CELL COUNT 4.14 10^6/uL (4.50-6.00); RED CELL DISTRIBUTION WIDTH 13.6 % (11.5-14.5); WHITE BLOOD CELL COUNT,WBC 17.38 10^3/uL (5.00-10.00)
[2023-12-21 14:05] LABS: ALBUMIN 3.37 g/dL (3.40-5.00); BILIRUBIN TOTAL 0.8 mg/dL (0.2-1.0); CALCIUM 8.4 mg/dL (8.7-10.3); CARBON DIOXIDE,CO2 27.3 mmol/L (21.0-32.0); CREATININE 0.95 mg/dL (0.51-1.17); EST CRCL DRUG DOSING (CG) 82.57 mL/min; POTASSIUM,K 4.3 mmol/L (3.5-5.1); PROTEIN TOTAL,TP 6.9 g/dL (6.4-8.2)
[2023-12-21 14:51] LABS: APPEARANCE,URINE CLEAR (CLEAR); BILIRUBIN,URINE NEGATIVE (NEGATIVE); COLOR,URINE YELLOW (YELLOW); GLUCOSE,URINE NEGATIVE (NEGATIVE); KETONES,URINE NEGATIVE (NEGATIVE); LEUKOCYTE ESTERASE,URINE NEGATIVE (NEGATIVE); NITRITE,URINE NEGATIVE (NEGATIVE); OCCULT BLOOD,URINE NEGATIVE (NEGATIVE); PH,URINE 6.5 (5.0-9.0); PROTEIN,URINE NEGATIVE (NEGATIVE); UROBILINOGEN,URINE 0.2 E.U./dL (0.2-1.0)
== END 2023-12-21 15:30 | disposition home or self-care (01) ==
LOC: KA.ED 13:22
DX: K52.9 Noninfective gastroenteritis and colitis, unspecified (principal); E86.0 Dehydration; D72.829 Elevated white blood cell count, unspecified; E78.00 Pure hypercholesterolemia, unspecified; I10 Essential (primary) hypertension; E11.9 Type 2 diabetes mellitus without complications; Z88.8 Allergy status to other drugs, medicaments and biological substances; Z79.899 Other long term (current) drug therapy
CPT/HCPCS: 36415; 80053; 81003; 85025; 96360; 99284-25; J7030

== ENCOUNTER 2025-04-07 14:27 | Observation (INO) | payer MEDICARE ==
[2025-04-07 15:07] LABS: BASOPHILS ABSOLUTE AUTO 0.09 10^3/uL (0.00-0.10); BASOPHILS PERCENT AUTO 0.5 % (0.0-1.0); EOSINOPHILS ABSOLUTE AUTO 0.46 10^3/uL (0.10-0.30); EOSINOPHILS PERCENT AUTO 2.6 % (1.0-3.0); IMMATURE GRAN ABSOLUTE AUTO 0.18 10^3/uL (0.00-0.04); IMMATURE GRAN PERCENT AUTO 1.0 % (0.0-0.4); LYMPHOCYTES ABSOLUTE AUTO 1.90 10^3/uL (1.00-4.00); LYMPHOCYTES PERCENT AUTO 10.9 % (20.0-40.0); MEAN PLATELET VOLUME 9.6 fL (7.4-10.4); MONOCYTES ABSOLUTE AUTO 2.87 10^3/uL (0.10-0.80); MONOCYTES PERCENT AUTO 16.5 % (2.0-8.0); NEUTROPHILS ABSOLUTE AUTO 11.93 10^3/uL (2.50-7.00); NEUTROPHILS PERCENT AUTO 68.5 % (50.0-70.0); PLATELET COUNT,PLT 416 10^3/uL (150-400); RED BLOOD CELL COUNT 3.43 10^6/uL (4.50-6.00); RED CELL DISTRIBUTION WIDTH 12.6 % (11.5-14.5); WHITE BLOOD CELL COUNT,WBC 17.43 10^3/uL (5.00-10.00)
[2025-04-07 15:30] LABS: ALANINE AMINOTRANSFERASE,ALT 50.0 U/L (14-63); ASPARTATE AMNIOTRANSFERASE,AST 11.0 U/L (15-37); BILIRUBIN TOTAL 0.5 mg/dL (0.2-1.0); BLOOD UREA NITROGEN,BUN 25.0 mg/dL (7-18); CARBON DIOXIDE,CO2 25.4 mmol/L (21.0-32.0); CHLORIDE,CL 103.0 mmol/L (98-107); CREATININE 1.3 mg/dL (0.51-1.17); EST CRCL DRUG DOSING (CG) 59.53 mL/min; ESTIMATED GFR 61.0 mL/min (>=60); GLUCOSE RANDOM 208.0 mg/dL (70-140); POTASSIUM,K 3.8 mmol/L (3.5-5.1); PROTEIN TOTAL,TP 7.4 g/dL (6.4-8.2); SODIUM,NA 138.0 mmol/L (136-145)
[2025-04-07] MEDS: Magnesium Sulfate 2 GM/50 mL 2 GM in Premix Bag 1 BAG IV ONE ×2 (15:39→16:31)
[2025-04-07 15:41] LABS: INR 0.9 (0.9-1.1)
[2025-04-07 16:21] LABS: APPEARANCE,URINE CLEAR (CLEAR); GLUCOSE,URINE 500 mg/dL (NEGATIVE); OCCULT BLOOD,URINE NEGATIVE (NEGATIVE)
[2025-04-07 16:23] LABS: EPITHELIAL CELLS,URINE NOT SEEN /LPF; SQUAMOUS EPITHELIAL CELLS,UR NOT SEEN /HPF (NOT SEEN)
[2025-04-07] MEDS ORDERED: Ondansetron 4 MG Tab.DIS PO PRN (18:45)
[2025-04-07] MEDS: Lactated Ringers 1,000 ML IV SCH (19:08)
[2025-04-07] MEDS: metFORMIN 500 MG Tab.ER PO SCH (21:40)
[2025-04-08 07:12] LABS: MEAN PLATELET VOLUME 9.6 fL (7.4-10.4); PLATELET COUNT,PLT 376 10^3/uL (150-400); RED BLOOD CELL COUNT 2.92 10^6/uL (4.50-6.00); RED CELL DISTRIBUTION WIDTH 13.0 % (11.5-14.5); WHITE BLOOD CELL COUNT,WBC 14.35 10^3/uL (5.00-10.00)
[2025-04-08 07:27] LABS: BLOOD UREA NITROGEN,BUN 18.0 mg/dL (7-18); CARBON DIOXIDE,CO2 25.1 mmol/L (21.0-32.0); CHLORIDE,CL 108.0 mmol/L (98-107); CREATININE 1.14 mg/dL (0.51-1.17); EST CRCL DRUG DOSING (CG) 67.89 mL/min; GLUCOSE RANDOM 138.0 mg/dL (70-140); POTASSIUM,K 4.3 mmol/L (3.5-5.1); SODIUM,NA 140.0 mmol/L (136-145)
[2025-04-08 07:36] LABS: ESTIMATED GFR 71.0 mL/min (>=60)
[2025-04-08] MEDS: Cholecalciferol (Vitamin D3) 25 MCG Tab PO SCH (08:52)
[2025-04-08] MEDS: Calcium Citrate/Vitamin D3 315 MG-250 Unit Tab PO SCH (08:53)
[2025-04-08] MEDS: Pantoprazole 20 MG Tab, Delayed Release PO SCH (08:53)
[2025-04-08] MEDS: Cyanocobalamin (Vitamin B12) 500 MCG Tab PO SCH (08:53)
[2025-04-08] MEDS: Magnesium Sulfate 2 GM/50 mL 2 GM in Premix Bag 1 BAG IV ONE (11:54)
[2025-04-08] MEDS: Lactated Ringers 1,000 ML IV SCH (13:36)
[2025-04-08 17:01] VITALS: BP 117/69; PULSE 78
== END 2025-04-08 17:00 | disposition home or self-care (01) ==
LOC: KA.ED 14:27 → KA.MS 17:25
PROVIDERS: ADMIT Family Medicine; ATTEND Family Medicine
DX: I48.0 Paroxysmal atrial fibrillation (principal); E83.42 Hypomagnesemia; I10 Essential (primary) hypertension; E78.5 Hyperlipidemia, unspecified; Z79.01 Long term (current) use of anticoagulants; Z79.899 Other long term (current) drug therapy
CPT/HCPCS: 36415; 71045; 80048; 80053; 81001; 82947; 83605; 83735; 84484; 85025; 85027; 85610; 86140; 87040; 93010; 96361; 96365; 96366; 99284; 99285-25; A9270-GY; G0378; J3475; J7030; J7120; Q3014